=== PATIENT | male | born 1995 | race Two or more races ===

== ENCOUNTER 2021-02-24 19:42 | Emergency (ER) | payer OTHER ==
[~2021-02-24] VITALS: Ht 167.6 cm; Wt 70.0 kg
[2021-02-24] MEDS ORDERED: AMOX TR/POT CLAV 875 MG/125 MG TABLET PO ONE (20:45)
[2021-02-24] MEDS ORDERED: PERTUSS(ACELL),DIPH,TET VAC/PF 0.5 ML SYRINGE IM. ONE (20:45)
[2021-02-24] MEDS ORDERED: LIDOCAINE 1% 10 ML VIAL SQ ONE (20:45)
[2021-02-24 21:50] VITALS: BP 124/75
== END 2021-02-24 22:11 | disposition home or self-care (01) ==
LOC: EMS 19:45
DX: S01.81XA Laceration without foreign body of other part of head, initial encounter (principal); W54.0XXA Bitten by dog, initial encounter; Y93.89 Activity, other specified; Y92.89 Other specified places as the place of occurrence of the external cause; Y99.8 Other external cause status
CPT/HCPCS: 12011; 90471; 90715; 99283; J3490

== ENCOUNTER 2021-10-13 21:44 | Emergency (ER) | payer SELFPAY ==
[~2021-10-13] VITALS: Ht 167.6 cm; Wt 70.5 kg
[2021-10-13] MEDS ORDERED: BACITRACIN 0.9 GM PACKET OINTMENT TP ONE (22:30)
[2021-10-14 00:06] VITALS: BP 127/63
== END 2021-10-14 00:08 | disposition home or self-care (01) ==
LOC: EMS 21:48
DX: S60.222A Contusion of left hand, initial encounter (principal); S80.211A Abrasion, right knee, initial encounter; M79.9 Soft tissue disorder, unspecified; V29.49XA Motorcycle driver injured in collision with other motor vehicles in traffic accident, initial encounter; Y93.89 Activity, other specified; Y92.89 Other specified places as the place of occurrence of the external cause; Y99.8 Other external cause status
CPT/HCPCS: 99284; 73130-TC; 73562-TC; Z7502; Z7610